=== PATIENT | male | born 1950 | race Caucasian/White ===

== ENCOUNTER 2016-03-03 16:10 | Outpatient (CLI) | payer BC | END 2016-03-03 16:11 | disposition home or self-care (01) | DX: R05 Cough (principal) ==

== ENCOUNTER 2016-10-29 13:06 | Outpatient (CLI) | payer MEDICARE, BC ==
--- NOTE | 2016-10-29 17:56 | MRI Report ---
EXAM: MRI LUMBAR SPINE WITHOUT CONTRAST EXAM DATE: 10/29/2016 01:51 PM. CLINICAL HISTORY: Right buttock pain radiates to leg. Previous liver transplant. COMPARISON: X-ray 09/17/2016. TECHNIQUE: Multiplanar, multisequence T1-weighted and fluid-sensitive sequences of the lumbar spine f rom T12 to S1 without contrast. Other: None. FINDINGS: Spinal Cord: The conus terminates at T12. No signal abnormality in the visualized spinal cord. Alignment: 0.3 cm L4 anterolisthesis. No significant scoliotic curvature. Bone Marrow: Five [id number] lumbar vertebral bodies are assumed. Mild endplate edema at L5-S1, degenerative. No fracture or suspicious bony lesion. Disk Levels/Facets: T12-L1: Unremarkable. L1-L2: Mild disk bulge and T2 hypointensity of the disk. Mild bilateral facet arthropathy. Moderate b ilateral foraminal stenoses. L2-L3: Mild disk bulge and moderate bilateral facet arthropathy. Moderate bilateral foraminal stenose s. L3-L4: Mild bulge. Moderate bilateral facet arthropathy. No central stenosis. Mjxj-es-jvcwywkr bilate ral foraminal stenoses. L4-L5: Moderate disk bulge. Severe bilateral facet arthropathy with small facet joint effusion on the left. Ligament flavum thickening. Mild central stenosis. Moderate bilateral foraminal stenoses. L5-S1: Moderate disk narrowing with mild bulge. Moderate bilateral facet arthropathy. Moderate right foraminal stenosis. Musculature: Normal. No edema or fatty atrophy. Other: The visualized pelvic cavity is unremarkable. IMPRESSION: 1. Mild central stenosis L4-L5. 2. Multilevel bilateral moderate foraminal stenoses described above. 3. Moderate multilevel degenerative disk disease and facet arthropathy. Disk narrowing is most signif icant at L5-S1. Comment: The following findings are so common in adults without low back pain that while we report th eir presence, they must be interpreted with caution and in the context of the clinical situation. (Re denise Deluna et al, Spine 2001) Prevalence of findings in patients without low back pain: Disk degeneration (any evidence): 92% Disk desiccation/T2 signal loss: 83% Disk height loss: 56% Disk bulge: 64% Disk protrusion: 32% Annular tear/high intensity zone: 38% [facility] Referring Provider Line: [phone] SITE ID: [id number]
== END 2016-10-29 13:07 | disposition home or self-care (01) ==
LOC: DI 13:06
PROVIDERS: ATTEND Family Medicine
DX: M51.16 Intervertebral disc disorders with radiculopathy, lumbar region (principal)
CPT/HCPCS: 72148

== ENCOUNTER 2017-03-14 04:51 | Emergency (ER) | payer MEDICARE, BC ==
--- NOTE | 2017-03-14 05:03 | ED Physician Documentation ---
PD HPI NECK PAIN - Stated complaint Stated Complaint: SYNCOPE,NECK PAIN - Chief complaint Chief Complaint: Back Pain - History obtained from History obtained from: Patient - History of Present Illness Timing - onset: How many days ago (3) Timing - duration: Days (3) Timing - details: Abrupt onset Pain level now: 8 Location: Mid Quality: Pain Associated symptoms: No: Fever, Weakness, Numbness Improves with: Rest Worsened by: Movement Recently seen: Not recently seen - Additional information Additional information: syncopal episode 3 days ago; he was walking in his house, felt lightheaded and passed out, awoke on floor with helping him up. He says he has had similar episodes and has had extensive w/u at [facility] without diagnostic result. His chief complaint today is neck pain that started the evening he had the syncopal event but that has steadily progressed. He was unable to sleep tonight due to the pain , and had inadequate relief with codeine. Review of Systems Cardiac: reports: Reviewed and negative Respiratory: reports: Reviewed and negative GI: reports: Reviewed and negative : denies: Unable to Void, Incontinent Musculoskeletal: reports: Neck pain. denies: Back pain Neurologic: reports: Syncope. denies: Generalized weakness, Focal weakness, Numbness, Headache, Head injury PD PAST MEDICAL HISTORY - Past Medical History Past Medical History: Yes Cardiovascular: Hypertension Respiratory: None Endocrine/Autoimmune: None GI: None : Benign prostate hypertrophy HEENT: None Psych: None Musculoskeletal: None Derm: Other - Past Surgical History Past Surgical History: Yes - Present Medications Home Medications: Ambulatory Orders Medication Instructions Recorded Confirmed Allopurinol 200 mg ORAL DAILY 03/29/14 03/29/14 Calcium Carbonate [Caltrate 600] 600 mg ORAL DAILY 03/29/14 03/29/14 Carvedilol 75 mg ORAL DAILY 03/29/14 03/29/14 Colchicine [Colcrys] 0.6 mg ORAL DAILY 03/29/14 03/29/14 Irbesartan 75 mg ORAL DAILY 03/29/14 03/29/14 Mycophenolate Sodium [Mycophenolic 360 mg ORAL BID 03/29/14 03/29/14 Acid] Tacrolimus [Prograf] 1.5 mg ORAL BID 03/29/14 03/29/14 Cyclobenzaprine [Flexeril] 10 mg PO TID PRN #20 tablet 03/14/17 oxyCODONE [Roxicodone] 5 - 10 mg PO Q6H PRN #20 tablet 03/14/17 - Allergies Allergies/Adverse Reactions: Allergies Allergy/AdvReac Type Severity Reaction Status Date / Time No Known Drug Allergies Allergy Verified 03/14/17 04:59 - Social History Does the pt smoke?: No Smoking Status: Never smoker Does the pt drink ETOH?: No Does the pt have substance abuse?: No - Immunizations Immunizations are current?: Yes - POLST Patient has POLST: No PD ED PE NORMAL - Vitals Vital signs reviewed: Yes - General General: Alert and oriented X 3, No acute distress (NAD at rest, but keeps his head in neutral ("looking straight ahead") position, and appears uncomfortable with attempts at turning head to either side. ), Well developed/nourished - Neck Neck: Supple, no meningeal sign, No bony TTP - Cardiac Cardiac: RRR, No murmur - Respiratory Respiratory: No respiratory distress, Clear bilaterally - Abdomen Abdomen: Soft, Non tender - Derm Derm: Normal color, Warm and dry - Neuro Neuro: Alert and oriented X 3 Eye Opening: Spontaneous Motor: Obeys Commands Verbal: Oriented GCS Score: 15 Results - Vitals Vitals: Vital Signs - 24 hr 03/14/17 03/14/17 04:57 06:26 Temperature 36.5 C Heart Rate 99 74 Respiratory 18 18 Rate Blood Pressure 153/82 H 132/79 H O2 Saturation 100 96 Oxygen O2 Source Room air - EKG (time done) No standard instances Rate: Rate (enter#) (83) Rhythm: NSR [place]: Normal Intervals: Normal [place] QRS: Normal Ischemia: Normal ST segments - Labs Labs: Laboratory Tests 03/14/17 03/14/17 03/14/17 05:53 05:53 05:53 WBC 11.4 H RBC 4.75 Hgb 13.1 L Hct 40.1 L MCV 84.4 MCH 27.5 MCHC 32.6 RDW 13.8 Plt Count 148 MPV 8.3 Neut # 9.9 H Lymph # 0.7 L [place] # 0.8 Eos # 0.0 Baso # 0.0 Absolute Nucleated RBC 0.00 Nucleated RBC % 0.0 Sodium 135 Potassium 4.2 Chloride 100 L Carbon Dioxide 23 Anion Gap 12.0 BUN 36 H Creatinine 2.0 H Estimated GFR (MDRD) 34 L Glucose 172 H Calcium 9.4 Total Bilirubin 0.6 AST 17 ALT 17 Alkaline Phosphatase 54 Troponin I < 0.04 Total Protein 7.1 Albumin 4.6 Globulin 2.5 Albumin/Globulin Ratio 1.8 Lipase 26 - Rads (name of study) chest xray Radiology: Prelim report reviewed, See rad report CT cervical spine Radiology: Prelim report reviewed, See rad report PD MEDICAL DECISION MAKING - ED course Complexity details: reviewed old records, reviewed results, re-evaluated patient , considered differential, d/w patient ED course: On reevaluation, patient appears more comfortable and reports adequate symptom relief with the oxycodone and flexeril Departure - Departure Disposition: 01 Home, Self Care Clinical Impression: Injury of neck, Syncope Condition: Good Instructions: ED Soft Collar, ED Sprain Strain Neck, ED Fainting Unkn Cause Follow-Up: Noah Light MD [Primary Care Provider] - Prescriptions: Cyclobenzaprine [Flexeril] 10 mg PO TID PRN #20 tablet PRN Reason: Spasms oxyCODONE [Roxicodone] 5 - 10 mg PO Q6H PRN #20 tablet PRN Reason: Pain
[2017-03-14] MEDS ORDERED: CYCLOBENZAPRINE 10 MG TABLET PO STA (05:29)
[2017-03-14] MEDS ORDERED: oxyCODONE 5 MG TABLET PO STA (05:29)
[2017-03-14 06:03] LABS: BASOPHILS % (AUTO) 0.2 %; EOSINOPHILS % (AUTO) 0.4 %; HGB - HEMOGLOBIN 13.1 g/dL (14.0-18.0); LYMPHOCYTES # (AUTO) 0.7 10^3/uL (1.5-3.5); MEAN CORPUSCULAR HEMOGLOBIN 27.5 pg (27.0-31.0); MEAN CORPUSCULAR HGB CONC 32.6 g/dL (32.0-36.0); MEAN CORPUSCULAR VOLUME 84.4 fL (80.0-94.0); MEAN PLATELET VOLUME 8.3 fL (7.4-11.4); MONOCYTES # (AUTO) 0.8 10^3/uL (0.0-1.0); MONOCYTES % (AUTO) 6.9 %; NEUTROPHILS # (AUTO) 9.9 10^3/uL (1.5-6.6); NEUTROPHILS % (AUTO) 86.5 %; PLT - PLATELET COUNT 148 10^3/uL (130-450); RED BLOOD COUNT 4.75 10^6/uL (4.70-6.10); RED CELL DISTRIBUTION WIDTH 13.8 % (12.0-15.0); WHITE BLOOD COUNT 11.4 x10^3/uL (4.8-10.8)
[2017-03-14 06:13] LABS: ALBUMIN 4.6 g/dL (3.2-5.5); ALBUMIN/GLOBULIN RATIO 1.8 (1.0-2.2); BILIRUBIN,TOTAL 0.6 mg/dL (0.2-1.0); CALCIUM 9.4 mg/dL (8.5-10.3); TOTAL PROTEIN 7.1 g/dL (6.7-8.2)
--- NOTE | 2017-03-14 06:17 | XRAY Report ---
EXAM: CHEST RADIOGRAPHY EXAM DATE: 03/14/2017 06:03 AM. CLINICAL HISTORY: Syncope. COMPARISON: 07/15/2016. TECHNIQUE: 2 views. FINDINGS: Lungs/Pleura: No focal opacities evident. No pleural effusion. No pneumothorax. Normal volumes. Mediastinum: Heart and mediastinal contours are unremarkable. Other: Stable left hemidiaphragm elevation. IMPRESSION: No acute process seen in the chest. [facility] Referring Provider Line: [phone] SITE ID: [id number]
--- NOTE | 2017-03-14 06:28 | CT Report ---
EXAM: CT CERVICAL SPINE WITHOUT CONTRAST DATE: 03/14/2017 05:45 AM. HISTORY: Fall, neck pain. COMPARISONS: Cervical spine MRI 12/27/2015. TECHNIQUE: Thin-section axial images were acquired of the cervical spine without contrast. Post-proce ssing: Coronal and sagittal reformats. Other: None. In accordance with CT protocol optimization, one or more of the following dose reduction techniques w ere utilized for this exam: automated exposure control, adjustment of mA and/or KV based on patient s ize, or use of iterative reconstructive technique. FINDINGS: Alignment: No scoliosis or spondylolisthesis. Bones: There is slight loss of the T1 vertebral body with deformity of the superior endplate as on p rior MRI. No evidence of acute fracture. Interspace Levels/Facets: C1-C2: Unremarkable. C2-C3: Unremarkable. C3-C4: Unremarkable. C4-C5: There is a disk bulge with mild central canal narrowing. C5-C6: There is disk height loss. There are endplate degenerative changes. There is a disk bulge with mild central canal narrowing. There is moderate bilateral neural foraminal narrowing. C6-C7: There is disk height loss and endplate degenerative changes. There is a disk osteophyte comple x with moderate central canal narrowing. There is moderate bilateral neural foraminal narrowing. C7-T1: Unremarkable. Musculature: Normal. No fatty atrophy. Other: The paravertebral and prevertebral soft tissues are unremarkable. The lung apices are clear. IMPRESSION: No evidence of acute cervical spine fracture. [facility] Referring Provider Line: [phone] SITE ID: [id number]
--- NOTE | 2017-03-14 06:28 | CT Preliminary Report ---
Exam: CT CERVICAL SPINE W/O IMPRESSION: No evidence of acute cervical spine fracture. [facility] SITE ID: [id number]
[2017-03-14 08:19] VITALS: BP 136/72
== END 2017-03-14 07:15 | disposition home or self-care (01) ==
LOC: ED 04:51
DX: S19.9XXA Unspecified injury of neck, initial encounter (principal); W19.XXXA Unspecified fall, initial encounter; R55 Syncope and collapse; I10 Essential (primary) hypertension
CPT/HCPCS: 36415; 71046; 72125; 80053; 83690; 84484; 85025; 93005; 99283; 99284; A9270

== ENCOUNTER 2017-09-22 10:06 | Emergency (ER) | payer MEDICARE, BC ==
[2017-09-22] MEDS ORDERED: SODIUM CHLORIDE 0.9% 1,000 ML IV ONE ×2 (10:26→11:55)
[2017-09-22] MEDS ORDERED: METOPROLOL 5 MG/5 ML VIAL IVP STA (10:47)
--- NOTE | 2017-09-22 10:51 | ED Physician Documentation ---
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 HTN and gout and renal insuff stable on meds - no new changes at baseline health recently - no fever cough NVD was taking out garbage and felt near syncope hx same about 3 times a year has had an extensive wup for the same at [facility] but no cause ever found states sx usually self resolve so PMD told him if sx occurred again to go to ED right away while symptomatic he arrives here in fib RVR with no hx same Review of Systems Constitutional: denies: Fever, Chills Cardiac: denies: Chest pain / pressure, Palpitations Respiratory: denies: Dyspnea, Cough GI: denies: Abdominal Pain, Nausea, Vomiting Neurologic: reports: Generalized weakness. denies: Focal weakness, Numbness Endocrine: denies: Easy bruising / bleeding Immunocompromised: reports: Immunocompromised (post transplant) PD PAST MEDICAL HISTORY - Past Medical History Cardiovascular: Hypertension Respiratory: None Endocrine/Autoimmune: None GI: None : Benign prostate hypertrophy HEENT: None Psych: None Musculoskeletal: None Derm: Other - Past Surgical History Past Surgical History: Yes - Present Medications Home Medications: Ambulatory Orders Medication Instructions Recorded Confirmed Allopurinol 200 mg ORAL DAILY 03/29/14 09/22/17 Calcium Carbonate [Caltrate 600] 600 mg ORAL DAILY 03/29/14 09/22/17 Carvedilol 75 mg ORAL DAILY 03/29/14 09/22/17 Colchicine [Colcrys] 0.6 mg ORAL PRN PRN 03/29/14 03/29/14 Irbesartan 75 mg ORAL DAILY 03/29/14 09/22/17 Mycophenolate Sodium [Mycophenolic 360 mg ORAL BID 03/29/14 09/22/17 Acid] Tacrolimus [Prograf] 1.5 mg ORAL BID 03/29/14 09/22/17 - Allergies Allergies/Adverse Reactions: Allergies Allergy/AdvReac Type Severity Reaction Status Date / Time No Known Drug Allergies Allergy Verified 03/14/17 04:59 - Social History Does the pt smoke?: No Smoking Status: Never smoker Does the pt drink ETOH?: No Does the pt have substance abuse?: No - Immunizations Immunizations are current?: Yes - POLST Patient has POLST: No PD ED PE NORMAL - Vitals Vital signs reviewed: Yes - General General: Alert and oriented X 3 - HEENT HEENT: PERRL - Neck Neck: Supple, no meningeal sign - Cardiac Cardiac: No: RRR (tachy) - Respiratory Respiratory: No respiratory distress, Clear bilaterally - Abdomen Abdomen: Non tender - Neuro Neuro: Alert and oriented X 3, 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, No motor deficit, Normal speech Results - Vitals Vitals: Vital Signs - 24 hr 09/22/17 09/22/17 09/22/17 10:18 11:01 11:06 Temperature 36 C L Heart Rate 62 124 H 136 H Respiratory 16 20 13 Rate Blood Pressure 107/89 H 150/127 H 77/62 L O2 Saturation 99 97 98 09/22/17 09/22/17 09/22/17 11:10 11:12 11:24 Temperature Heart Rate 122 H 135 H 120 H Respiratory Rate Blood Pressure 85/67 L 96/52 L 85/55 L O2 Saturation 98 09/22/17 09/22/17 09/22/17 12:20 12:27 12:41 Temperature Heart Rate 120 H 115 H 120 H Respiratory 16 17 Rate Blood Pressure 79/54 L 93/68 103/64 O2 Saturation 100 100 09/22/17 09/22/17 09/22/17 12:50 13:03 13:06 Temperature Heart Rate 113 H 67 72 Respiratory 18 12 16 Rate Blood Pressure 98/66 96/68 O2 Saturation 100 100 09/22/17 09/22/17 09/22/17 13:27 13:54 14:23 Temperature Heart Rate 64 62 95 Respiratory 15 16 16 Rate Blood Pressure 98/72 103/81 H 104/74 O2 Saturation 99 100 99 09/22/17 14:53 Temperature Heart Rate 64 Respiratory 64 H Rate Blood Pressure 105/77 O2 Saturation 98 Oxygen O2 Source Room air - EKG (time done) 1026 Rate: Rate (enter#) (157) Rhythm: Atrial fibrillation Ischemia: Non specific changes 1320 Rate: Rate (enter#) (64) Rhythm: NSR Ischemia: Non specific changes (flat T inf, TWI III only) - Labs Labs: Laboratory Tests 09/22/17 09/22/17 09/22/17 10:45 10:45 10:45 WBC 6.7 RBC 4.77 Hgb 13.3 L Hct 39.6 L MCV 83.0 MCH 28.0 MCHC 33.7 RDW 14.1 Plt Count 132 MPV 8.6 Neut # (Auto) 4.8 Lymph # (Auto) 0.9 L [place] # (Auto) 0.7 Eos # (Auto) 0.2 Baso # (Auto) 0.0 Absolute Nucleated RBC 0.00 Nucleated RBC % 0.1 Sodium 137 Potassium 4.4 Chloride 103 Carbon Dioxide 25 Anion Gap 9.0 BUN 44 H Creatinine 2.4 H Estimated GFR (MDRD) 27 L Glucose 127 H Lactic Acid Calcium 9.4 Total Bilirubin 1.1 H AST 22 ALT 16 Alkaline Phosphatase 54 Troponin I < 0.04 Total Protein 6.8 Albumin 4.3 Globulin 2.5 Albumin/Globulin Ratio 1.7 Lipase 29 Urine Color Urine Clarity Urine pH Ur Specific [place] Urine Protein Urine Glucose (UA) Urine Ketones Urine Occult Blood Urine Nitrite Urine Bilirubin Urine Urobilinogen Ur Leukocyte Esterase Ur Microscopic Review Urine Culture Comments 09/22/17 09/22/17 10:45 13:30 WBC RBC Hgb Hct MCV MCH MCHC RDW Plt Count MPV Neut # (Auto) Lymph # (Auto) [place] # (Auto) Eos # (Auto) Baso # (Auto) Absolute Nucleated RBC Nucleated RBC % Sodium Potassium Chloride Carbon Dioxide Anion Gap BUN Creatinine Estimated GFR (MDRD) Glucose Lactic Acid 1.2 Calcium Total Bilirubin AST ALT Alkaline Phosphatase Troponin I Total Protein Albumin Globulin Albumin/Globulin Ratio Lipase Urine Color YELLOW Urine Clarity CLEAR Urine pH 6.0 Ur Specific [place] 1.015 Urine Protein TRACE Urine Glucose (UA) NEGATIVE Urine Ketones NEGATIVE Urine Occult Blood TRACE-INTA Urine Nitrite NEGATIVE Urine Bilirubin NEGATIVE Urine Urobilinogen 0.2 (NORMAL) Ur Leukocyte Esterase NEGATIVE Ur Microscopic Review NOT INDICATED Urine Culture Comments NOT INDICATED - Rads (name of study) CCXR Radiology: See rad report (no acute) Procedures - Procedural sedation Sedation prep: Informed consent, Time out completed, Last meal (approx 730 AM), PE performed, AHA 2 - mild disease, IV O2 monitor, ET CO2 monitor, RT present Sedation medications: morphine, zofran, propofol, given by MD Patient status during sedation: Responds to tactile. No: Complications Sedation recovery: Recovered uneventfully, Back to baseline - Cardioversion 1 Time of attempt: 12:55 Indication: Clinically unstable Risks, benefits, alternatives explained to: Pt Prep: IV, O2, monitor technician, Pulse ox, Airway equip Meds: Morphine, Propofol CS via: Pads, Anterolateral Sync: Biphasic, 100j Post cardioversion rhythm: NSR Complications: Other (none) PD MEDICAL DECISION MAKING - ED course ED course: MSE performed near syncope and new a fib RVR gave a single dose of lopressor for rate control and pt became hypotensive so cardioverted under propfol sedation succ with 100J sync X 1, pt tolerated sedation and cardioversion well afib not documented before but pt describes same sx many times before so likely recurrent now cardioverted lytes nl neg trop doubt PE as it is recurrent and he is not soa and has no leg swelling - and his GFR is too low pt now feels much better and is ambulating s syncope will dc after d/w PMD re anticoag etc - spoke to Dr Light who will see pt tomorrow will give copies of EKGs renal insuff not new now pt is stable and safe for dc with next day PMD fup - Sepsis Event Vital Signs: Vital Signs - 24 hr 09/22/17 09/22/17 09/22/17 10:18 11:01 11:06 Temperature 36 C L Heart Rate 62 124 H 136 H Respiratory 16 20 13 Rate Blood Pressure 107/89 H 150/127 H 77/62 L O2 Saturation 99 97 98 09/22/17 09/22/17 09/22/17 11:10 11:12 11:24 Temperature Heart Rate 122 H 135 H 120 H Respiratory Rate Blood Pressure 85/67 L 96/52 L 85/55 L O2 Saturation 98 09/22/17 09/22/17 09/22/17 12:20 12:27 12:41 Temperature Heart Rate 120 H 115 H 120 H Respiratory 16 17 Rate Blood Pressure 79/54 L 93/68 103/64 O2 Saturation 100 100 09/22/17 09/22/17 09/22/17 12:50 13:03 13:06 Temperature Heart Rate 113 H 67 72 Respiratory 18 12 16 Rate Blood Pressure 98/66 96/68 O2 Saturation 100 100 09/22/17 09/22/17 09/22/17 13:27 13:54 14:23 Temperature Heart Rate 64 62 95 Respiratory 15 16 16 Rate Blood Pressure 98/72 103/81 H 104/74 O2 Saturation 99 100 99 07/26/18 14:53 Temperature Heart Rate 64 Respiratory 64 H Rate Blood Pressure 105/77 O2 Saturation 98 Oxygen O2 Source Room air Departure - Departure Disposition: 01 Home, Self Care Clinical Impression: Near syncope Atrial fibrillation Qualifiers: Atrial fibrillation type: paroxysmal Qualified Code(s): I48.0 - Paroxysmal atrial fibrillation Condition: Good Instructions: Atrial Fibrillation Dc Follow-Up: Noah Light MD [Primary Care Provider] - (tomorrow for a recheck ) Comments: Please rest and take it easy today No driving today after receiving the sedating medications Drink plenty of fluids Follow up with Dr Light tomorrow Discharge Date/Time: 09/22/17 14:55
[2017-09-22 11:00] LABS: BASOPHILS % (AUTO) 0.5 %; EOSINOPHILS # (AUTO) 0.2 10^3/uL (0.0-0.7); EOSINOPHILS % (AUTO) 2.8 %; HGB - HEMOGLOBIN 13.3 g/dL (14.0-18.0); LYMPHOCYTES # (AUTO) 0.9 10^3/uL (1.5-3.5); LYMPHOCYTES % (AUTO) 13.9 %; MEAN CORPUSCULAR HGB CONC 33.7 g/dL (32.0-36.0); MEAN PLATELET VOLUME 8.6 fL (7.4-11.4); MONOCYTES # (AUTO) 0.7 10^3/uL (0.0-1.0); MONOCYTES % (AUTO) 10.1 %; NEUTROPHILS # (AUTO) 4.8 10^3/uL (1.5-6.6); NEUTROPHILS % (AUTO) 72.7 %; PLT - PLATELET COUNT 132 10^3/uL (130-450); RED BLOOD COUNT 4.77 10^6/uL (4.70-6.10); RED CELL DISTRIBUTION WIDTH 14.1 % (12.0-15.0); WHITE BLOOD COUNT 6.7 x10^3/uL (4.8-10.8)
[2017-09-22 11:14] LABS: ALBUMIN 4.3 g/dL (3.2-5.5); ALBUMIN/GLOBULIN RATIO 1.7 (1.0-2.2); BILIRUBIN,TOTAL 1.1 mg/dL (0.2-1.0); CALCIUM 9.4 mg/dL (8.5-10.3); CREATININE 2.4 mg/dL (0.6-1.2); TOTAL PROTEIN 6.8 g/dL (6.7-8.2)
--- NOTE | 2017-09-22 11:20 | XRAY Report ---
Procedure Date: 09/22/2017 Accession Number: [id number] / [id number] Procedure: XR - Chest 1 View X-Ray CPT Code: 04112 FULL RESULT: EXAM: CHEST RADIOGRAPHY EXAM DATE: 09/22/2017 10:58 AM. CLINICAL HISTORY: Chest pain and hypertension. COMPARISON: CHEST 2 VIEW 03/14/2017. TECHNIQUE: 1 view. 2 images are provided. FINDINGS: Lungs/Pleura: No focal opacities evident. No pleural effusion. No pneumothorax. Elevation of the left hemidiaphragm as before. Mediastinum: The cardiac silhouette is normal in size. Mildly tortuous thoracic aorta. Other: None. IMPRESSION: No radiographically apparent acute abnormality in the chest. No significant change from prior. [facility]
[2017-09-22] MEDS ORDERED: PROPOFOL 200 MG/20 ML VIAL IVP ONE (13:01)
[2017-09-22] MEDS ORDERED: MORPHINE 2 MG/ML SYRINGE ONE (13:06)
[2017-09-22] MEDS ORDERED: ONDANSETRON 4 MG/2 ML VIAL ONE (13:06)
[2017-09-22] MEDS ORDERED: MORPHINE 2 MG/ML SYRINGE IVP STA (13:08)
[2017-09-22] MEDS ORDERED: ONDANSETRON 4 MG/2 ML VIAL IVP STA (13:08)
[2017-09-22] MEDS ORDERED: PROPOFOL 200 MG/20 ML VIAL IVP STA (13:08)
[2017-09-22 13:39] LABS: BILIRUBIN,URINE NEGATIVE (NEGATIVE); GLUCOSE, URINE (UA) NEGATIVE (NEGATIVE); KETONES,URINE (UA) NEGATIVE (NEGATIVE); LEUKOCYTE ESTERASE, URINE NEGATIVE (NEGATIVE); NITRITE,URINE NEGATIVE (NEGATIVE); OCCULT BLOOD,URINE TRACE-INTA (NEGATIVE); PROTEIN,URINE TRACE mg/dL (NEGATIVE); UROBILINOGEN,URINE 0.2 (NORMAL) E.U./dL (NORMAL)
[2017-09-22 13:41] LABS: CLARITY,URINE CLEAR (CLEAR)
[2017-09-22 14:54] VITALS: BP 105/77
== END 2017-09-22 14:55 | disposition home or self-care (01) ==
LOC: ED 10:06
DX: R55 Syncope and collapse (principal); I48.0 Paroxysmal atrial fibrillation; I10 Essential (primary) hypertension; Z94.4 Liver transplant status
CPT/HCPCS: 36415; 71045; 80053; 81003; 83605; 83690; 84484; 85025; 87040; 93005; 94770; 99152; 99284; J2270; 81001; 87086; 92960

== ENCOUNTER 2017-09-30 08:08 | Outpatient (CLI) | payer MEDICARE, BC | END 2017-09-30 08:09 | disposition home or self-care (01) | LOC: DI 08:08 | PROVIDERS: ATTEND Family Medicine | DX: I48.91 Unspecified atrial fibrillation (principal) | CPT/HCPCS: 93306 ==

== ENCOUNTER 2019-05-04 10:57 | Outpatient (CLI) | payer MEDICARE, BC | END 2019-05-04 23:59 | disposition home or self-care (01) | LOC: LAB.WCP 10:57 | PROVIDERS: ATTEND Family Medicine | DX: Z12.5 Encounter for screening for malignant neoplasm of prostate (principal) | CPT/HCPCS: 36415; G0103; 84153 ==

== ENCOUNTER 2020-01-08 16:35 | Outpatient (CLI) | payer MEDICARE, BC | END 2020-01-08 16:36 | disposition home or self-care (01) | LOC: COV 16:35 | PROVIDERS: ATTEND Family Medicine | DX: R53.83 Other fatigue (principal); R68.83 Chills (without fever); R19.7 Diarrhea, unspecified; R11.2 Nausea with vomiting, unspecified; Z20.828 Contact with and (suspected) exposure to other viral communicable diseases ==

== ENCOUNTER 2020-06-30 12:07 | Outpatient (CLI) | payer MEDICARE, BC ==
--- NOTE | 2020-06-30 13:21 | XRAY Report ---
PROCEDURE: ThoracoLumbar 2 View INDICATIONS: DEGENERATIVE JOINT DISEASE, LUMBAR SPINE TECHNIQUE: 2 views acquired of the thoracolumbar spine. COMPARISON: 10/29/2016 MR LS-spine FINDINGS: Bones: No acute fractures or dislocations but there is degenerative disc disease that is mild at the superior third of the LS-spine, moderate at the middle third and near severe at the inferior third. This is most pronounced at L4-5 and L5-S1 where both prominent anterior osteophyte formation is seen and also facet osteoarthritis is present, most pronounced at L5-S1. Slight anterolisthesis grade 1 of L4 on L5 is present. This is apparently due to ligamentous laxity.. Visualized inferior ribs appear intact. No suspicious bony lesions. Soft tissues: No suspicious soft tissue calcifications. IMPRESSION: Progressively greater degenerative disc disease and facet osteoarthritis as the lumbosacral junction is approached, most pronounced at L5-S1 and with facet osteoarthritis present at L4-L5 to the degree that anterolisthesis grade 1 is associated. No recent trauma found. Reviewed by: Juan Rich MD on 06/30/2020 1:20 PM PDT Approved by: Juan Rich MD on 06/30/2020 1:20 PM PDT Station ID: [id number]
== END 2020-06-30 12:08 | disposition home or self-care (01) ==
LOC: DI 12:07
PROVIDERS: ATTEND Internal Medicine
DX: M47.816 Spondylosis without myelopathy or radiculopathy, lumbar region (principal); M51.36 Other intervertebral disc degeneration, lumbar region; M51.37 Other intervertebral disc degeneration, lumbosacral region; M43.16 Spondylolisthesis, lumbar region

== ENCOUNTER 2021-05-15 10:41 | Outpatient (CLI) | payer MEDICARE, BC ==
[2021-05-15 18:40] LABS: BASOPHILS # (AUTO) 0.1 10^3/uL (0.0-0.1); BASOPHILS % (AUTO) 0.6 %; EOSINOPHILS # (AUTO) 0.5 10^3/uL (0.0-0.7); EOSINOPHILS % (AUTO) 5.7 %; HGB - HEMOGLOBIN 13.8 g/dL (14.0-18.0); LYMPHOCYTES % (AUTO) 12.7 %; MEAN CORPUSCULAR HEMOGLOBIN 28.5 pg (27.0-31.0); MEAN CORPUSCULAR HGB CONC 32.9 g/dL (32.0-36.0); MEAN CORPUSCULAR VOLUME 86.8 fL (80.0-94.0); MEAN PLATELET VOLUME 11.2 fL (7.4-11.4); MONOCYTES # (AUTO) 0.8 10^3/uL (0.0-1.0); MONOCYTES % (AUTO) 10.6 %; NEUTROPHILS # (AUTO) 5.6 10^3/uL (1.5-6.6); PLT - PLATELET COUNT 162 10^3/uL (130-450); RED BLOOD COUNT 4.84 10^6/uL (4.70-6.10); RED CELL DISTRIBUTION WIDTH 12.8 % (12.0-15.0)
[2021-05-15 19:04] LABS: ALBUMIN 4.3 g/dL (3.2-5.5); ALBUMIN/GLOBULIN RATIO 1.5 (1.0-2.2); BILIRUBIN,TOTAL 0.9 mg/dL (0.2-1.0); CALCIUM 9.7 mg/dL (8.5-10.3); CREATININE 1.7 mg/dL (0.6-1.2); POTASSIUM 4.7 mmol/L (3.5-5.0); TOTAL PROTEIN 7.1 g/dL (6.7-8.2); URIC ACID 7.2 mg/dL (2.6-7.2)
== END 2021-05-15 10:42 | disposition home or self-care (01) ==
LOC: LAB.N 10:41
PROVIDERS: ATTEND Nurse Practitioner
DX: E79.0 Hyperuricemia without signs of inflammatory arthritis and tophaceous disease (principal)
CPT/HCPCS: 36415; 80053; 84550; 85025

== ENCOUNTER 2021-12-31 08:17 | Outpatient (CLI) | payer MEDICARE, BC ==
[2021-12-31 08:33] LABS: BASOPHILS % (AUTO) 0.6 %; EOSINOPHILS # (AUTO) 0.5 10^3/uL (0.0-0.7); EOSINOPHILS % (AUTO) 8.7 %; HCT - HEMATOCRIT 41.7 % (42.0-52.0); HGB - HEMOGLOBIN 13.5 g/dL (14.0-18.0); LYMPHOCYTES # (AUTO) 0.9 10^3/uL (1.5-3.5); LYMPHOCYTES % (AUTO) 17.5 %; MEAN CORPUSCULAR HGB CONC 32.4 g/dL (32.0-36.0); MEAN CORPUSCULAR VOLUME 86.5 fL (80.0-94.0); MEAN PLATELET VOLUME 9.4 fL (7.4-11.4); MONOCYTES # (AUTO) 0.4 10^3/uL (0.0-1.0); MONOCYTES % (AUTO) 7.3 %; NEUTROPHILS # (AUTO) 3.4 10^3/uL (1.5-6.6); NEUTROPHILS % (AUTO) 65.7 %; PLT - PLATELET COUNT 103 10^3/uL (130-450); RED BLOOD COUNT 4.82 10^6/uL (4.70-6.10); RED CELL DISTRIBUTION WIDTH 13.2 % (12.0-15.0); WHITE BLOOD COUNT 5.2 x10^3/uL (4.8-10.8)
[2021-12-31 08:56] LABS: ALBUMIN 4.6 g/dL (3.2-5.5); ALBUMIN/GLOBULIN RATIO 2.4 (1.0-2.2); ALKALINE PHOSPHATASE 63 IU/L (42-121); ALT ALANINE AMINOTRANSFERASE 25 IU/L (10-60); AST ASPARTATE AMINOTRANSFERASE 22 IU/L (10-42); BUN - BLOOD UREA NITROGEN 31 mg/dL (6-20); CALCIUM 9.9 mg/dL (8.5-10.3); CARBON DIOXIDE - CO2 27 mmol/L (21-32); CHLORIDE 103 mmol/L (101-111); CHOL/HDL RATIO 4.8 (<5.0); CHOLESTEROL 164 mg/dL; GFR - MDRD 33 (>89); GLUCOSE 112 mg/dL (70-100); HDL CHOLESTEROL 34 mg/dL; LDL CHOLESTEROL,CALCULATED 110 mg/dL; LDL/HDL RATIO 3.2 (<3.6); POTASSIUM 4.1 mmol/L (3.5-5.0); SODIUM 138 mmol/L (135-145); TOTAL PROTEIN 6.5 g/dL (6.7-8.2); TRIGLYCERIDES 101 mg/dL; URIC ACID 6.5 mg/dL (2.6-7.2); VLDL CHOLESTEROL 20 mg/dL
[2021-12-31 09:06] LABS: THYROID STIMULATING HORMONE 4.56 uIU/mL (0.34-5.60)
== END 2021-12-31 08:18 | disposition home or self-care (01) ==
LOC: LAB 08:17
PROVIDERS: ATTEND Internal Medicine
DX: I48.0 Paroxysmal atrial fibrillation (principal); N40.1 Benign prostatic hyperplasia with lower urinary tract symptoms; E79.0 Hyperuricemia without signs of inflammatory arthritis and tophaceous disease; Z94.4 Liver transplant status; Z13.220 Encounter for screening for lipoid disorders
CPT/HCPCS: 36415; 80053; 80061; 83721; 84153; 84443; 84550; 85025

== ENCOUNTER 2022-05-20 08:14 | Outpatient (CLI) | payer MEDICARE, BC ==
--- NOTE | 2022-05-20 11:53 | CT Report ---
PROCEDURE: SINUS SCREENING WO INDICATIONS: NOSE TENDER, CHRONIC MAXILLARY SINUSITIS TECHNIQUE: Noncontrast 3.0 mm axial images acquired from the frontal sinuses to the mid-sella, with coronal and sagittal reformats. For radiation dose reduction, the following was used: automated exposure control , adjustment of mA and/or kV according to patient size. COMPARISON: None. FINDINGS: Image quality: Excellent. Maxillary Sinuses: Mild to moderate mucosal thickening is seen within the inferior right maxillary si nus. Mild mucosal thickening is seen within the inferior left maxillary sinus. The medial mishra of th e maxillary sinuses are mildly demineralized. Ethmoid Air Cells: No bony remodeling or destruction. Minimal mucosal thickening is seen involving t he anterior ethmoid air cells. Sphenoid Sinuses: No bony remodeling or destruction. There is a mucous retention cyst seen involving the posterior right sphenoid sinus. Frontal Sinuses: No bony remodeling or destruction. Mild mucosal thickening is seen involving the in ferior medial frontal sinuses, left worse than right. Ostiomeatal Complexes: Ostiomeatal complexes are patent, yet they are constitutionally narrowed, wit h bilateral Elaine cells. Miscellaneous: Visualized intra-orbital contents are normal. No augie bullosa. No significant n marybeth septal deviation. Apparent cerumen can be seen within both external auditory canals. Apparent remote nasal bone fractures can be seen. IMPRESSION: Paranasal sinus disease is seen, which is worst involving the maxillary sinuses, right worse than lef t. Areas of bony demineralization are seen, which are consistent with chronic sinusitis. The ostiomeatal complexes are patent, yet they are constitutionally narrowed, with bilateral Elaine c ells. Reviewed by: Ezra Gotti MD on 05/20/2022 10:52 AM RAISA Approved by: Ezra Gotti MD on 05/20/2022 10:52 AM RAISA Station ID: [id number]
== END 2022-05-20 08:15 | disposition home or self-care (01) ==
LOC: DI 08:14
PROVIDERS: ATTEND Internal Medicine
DX: J34.89 Other specified disorders of nose and nasal sinuses (principal); J32.9 Chronic sinusitis, unspecified; J32.0 Chronic maxillary sinusitis

== ENCOUNTER 2023-05-23 15:06 | Emergency (ER) | payer MEDICARE, BC ==
[2023-05-23 18:08] LABS: BASOPHILS % (AUTO) 0.6 %; EOSINOPHILS # (AUTO) 0.5 10^3/uL (0.0-0.7); EOSINOPHILS % (AUTO) 8.4 %; HCT - HEMATOCRIT 41.9 % (42.0-52.0); HGB - HEMOGLOBIN 13.6 g/dL (14.0-18.0); LYMPHOCYTES # (AUTO) 1.3 10^3/uL (1.5-3.5); LYMPHOCYTES % (AUTO) 19.4 %; MEAN CORPUSCULAR HEMOGLOBIN 28.6 pg (27.0-31.0); MEAN CORPUSCULAR HGB CONC 32.5 g/dL (32.0-36.0); MEAN PLATELET VOLUME 10.3 fL (7.4-11.4); MONOCYTES # (AUTO) 0.5 10^3/uL (0.0-1.0); MONOCYTES % (AUTO) 7.5 %; NEUTROPHILS # (AUTO) 4.1 10^3/uL (1.5-6.6); NEUTROPHILS % (AUTO) 63.5 %; PLT - PLATELET COUNT 111 10^3/uL (130-450); RED BLOOD COUNT 4.76 10^6/uL (4.70-6.10); RED CELL DISTRIBUTION WIDTH 13.3 % (12.0-15.0); WHITE BLOOD COUNT 6.4 x10^3/uL (4.8-10.8)
[2023-05-23 18:20] LABS: ALBUMIN 4.5 g/dL (3.2-5.5); BILIRUBIN,TOTAL 0.5 mg/dL (0.2-1.0); CALCIUM 9.9 mg/dL (8.5-10.3); CREATININE 1.8 mg/dL (0.6-1.3); TOTAL PROTEIN 6.8 g/dL (6.4-8.9)
--- NOTE | 2023-05-23 18:27 | ED Physician Documentation ---
PD HPI DYSPNEA - Stated complaint Stated Complaint: UPPER BACK PX - Chief complaint Chief Complaint: Back Pain - Additional information Additional information: 73-year-old male presents emergency department for upper back/chest pain. Patient was sent here from urgent care for concerns of possible aneurysm versus dissection. Patient has complex past medical history including paroxysmal atrial fibrillation not anticoagulated, liver transplant due to hep C, hypertension. Patient reports since about mid March he has been having upper back pain that he says is very deep in his back and it hurts to take a deep breath and yesterday he started noticing more worsening pain with swallowing water. He said that his father started having multiple aortic aneurysms at this age which is what he is mostly concerned about. PD PAST MEDICAL HISTORY - Past Medical History Past Medical History: Yes Cardiovascular: Hypertension Respiratory: None Endocrine/Autoimmune: None GI: None : Benign prostate hypertrophy HEENT: None Psych: None Musculoskeletal: None Derm: Other - Past Surgical History Past Surgical History: Yes - Present Medications Home Medications: Ambulatory Orders Medication Instructions Recorded Confirmed Calcium Carbonate [Caltrate 600] 600 mg ORAL DAILY 03/29/14 05/23/23 Colchicine [Colcrys] 0.6 mg ORAL PRN PRN 03/29/14 05/23/23 Irbesartan 75 mg ORAL DAILY 03/29/14 05/23/23 Mycophenolate Sodium [Mycophenolic 360 mg ORAL BID 03/29/14 05/23/23 Acid] Tacrolimus [Prograf] 1.5 mg ORAL BID 03/29/14 05/23/23 allopurinoL [Allopurinol] 200 mg ORAL DAILY 03/29/14 05/23/23 carvediloL [Carvedilol] 75 mg ORAL DAILY 03/29/14 05/23/23 - Allergies Allergies/Adverse Reactions: Allergies Allergy/AdvReac Type Severity Reaction Status Date / Time levofloxacin [From Levaquin] Allergy Anaphylaxis Verified 05/23/23 18:22 - Social History Does the pt smoke?: No Smoking Status: Never smoker Does the pt drink ETOH?: No Does the pt have substance abuse?: No - Immunizations Immunizations are current?: Yes - POLST Patient has POLST: No PD ED PE NORMAL - Vitals Vital signs reviewed: Yes - General General: Alert and oriented X 3, No acute distress, Well developed/nourished - HEENT HEENT: Atraumatic, PERRL - Neck Neck: Supple, no meningeal sign, No JVD, No bruit - Cardiac Cardiac: RRR - Respiratory Respiratory: No respiratory distress - Abdomen Abdomen: Normal bowel sounds - Back Back: No CVA TTP, No spinal TTP, Other - Derm Derm: Normal color, Warm and dry, No rash - Neuro Neuro: Alert and oriented X 3 - Psych Psych: Normal mood - Free text exam Free text exam: Neck and back are without deformity, external skin changes, or signs of trauma. Curvature of the cervical, thoracic, and lumbar spine are within normal limits. Bony features of the shoulders and hips are of equal height bilaterally. Posture is upright, gait is smooth, steady, and within normal limits. No tenderness noted on palpation of the spinous processes. Spinous processes are midline. Cervical, thoracic, and lumbar paraspinal muscles are not tender and are without spasm. No discomfort is noted with flexion, extension, and [id number] rotation of the cervical spine, full range of motion is noted. Full range of motion including flexion, extension, and [id number] rotation of the thoracic and lumbar spine are noted and without discomfort. Straight leg raise test is negative bilaterally. Sensation to the upper and lower extremities is normal bilaterally. No clonus is noted. Gas Examiner strength is normal bilaterally. Dorsi/plantar flexion is normal bilaterally. Results - Vitals Vitals: Vital Signs - 24 hr 05/23/23 05/23/23 05/23/23 15:09 19:32 20:31 Temperature 36.8 C Heart Rate 80 67 65 Respiratory 16 16 14 Rate Blood Pressure 149/86 H O2 Saturation 99 98 98 Oxygen O2 Source Room air - Labs Labs: Laboratory Tests 05/23/23 05/23/23 05/23/23 17:59 17:59 17:59 WBC 6.4 RBC 4.76 Hgb 13.6 L Hct 41.9 L MCV 88.0 MCH 28.6 MCHC 32.5 RDW 13.3 Plt Count 111 L MPV 10.3 Neut # (Auto) 4.1 Lymph # (Auto) 1.3 L [place] # (Auto) 0.5 Eos # (Auto) 0.5 Baso # (Auto) 0.0 Absolute Nucleated RBC 0.00 Nucleated RBC % 0.0 D-Dimer < 200.0 L Sodium 137 Potassium 4.0 Chloride 103 Carbon Dioxide 27 Anion Gap 7.0 BUN 33 H Creatinine 1.8 H Estimated GFR (MDRD) 37 L Glucose 148 H Calcium 9.9 Total Bilirubin 0.5 AST 20 ALT 21 Alkaline Phosphatase 66 B-Natriuretic Peptide Total Protein 6.8 Albumin 4.5 Globulin 2.3 Albumin/Globulin Ratio 2.0 Lipase 39 05/23/23 17:59 WBC RBC Hgb Hct MCV MCH MCHC RDW Plt Count MPV Neut # (Auto) Lymph # (Auto) [place] # (Auto) Eos # (Auto) Baso # (Auto) Absolute Nucleated RBC Nucleated RBC % D-Dimer Sodium Potassium Chloride Carbon Dioxide Anion Gap BUN Creatinine Estimated GFR (MDRD) Glucose Calcium Total Bilirubin AST ALT Alkaline Phosphatase B-Natriuretic Peptide 15 Total Protein Albumin Globulin Albumin/Globulin Ratio Lipase - Rads (name of study) Angio chest with and without Relevant Findings:: Final report received, EMP independent interpretation of test, Other (Aneurysm no acute pulmonary embolus or other acute abnormalities or findings.) PD Medical Decision Making - ED course ED course: 73-year-old male presents emergency department for concerns of possible aneurysm versus dissection. Patient upper back pain actually started while he was working on his car about a month and a half ago but he was worried about a possible aneurysm because his father has had multiple aneurysms at similar age. CT angio was complete which did not reveal any sort of aneurysm or other acute abnormalities or findings. It showed possible diffuse scattered groundglass opacities although patient has no shortness of breath no chest pain. Patient was told to follow-up with primary care provider to keep an eye on the symptoms and he was given strict ER return precautions. Patient was offered Tylenol and Profen here in the emergency department but he said that given his chronic kidney disease and his liver transplant he has to avoid [id number] pain medications he said that the pain is very minimal and he feels like he will be able to handle it at home without any difficulty. Patient says that he will plan to follow-up with primary care provider for further evaluation. Departure - Departure Disposition: 01 Home, Self Care Clinical Impression: Upper back pain Instructions: ED Neck Back Pain General Comments: Thank you for trusting us with your care, we have evaluated you for upper back pain. Your main concern was possible aneurysm versus dissection and I am not seeing this on the CT scan. Please see below for the CT radiology report. The CT does show that there is possible pneumonitis although I do not believe that the symptoms you are experiencing are related to this at all. Please follow-up with your primary care provider for further evaluation about today's ER visit and please do not hesitate to come back to the emergency department if it is getting any worse or if you start develop any worsening chest pain shortness of breath or any other concerning emergent symptoms. COMPARISON: Chest radiograph dated 09/22/2017 FINDINGS: Image quality: Diagnostic. Large vessels: No filling defects within the opacified pulmonary arteries, accounting for motion and contrast timing. No evidence of acute aortic syndrome or aortic aneurysm. Lungs and pleura: No consolidation. Scattered faint groundglass opacities in the bilateral hemithoraces. No septal thickening or nodularity. No pleural effusions. No pneumothorax. No suspicious pulmonary nodules which require follow up. Coarse calcified pulmonary granuloma in the left lower lobe. Mediastinum: Heart size is normal. No pericardial effusion. No large vessel abnormality. No mediastinal adenopathy by size criteria. Chest wall and lower neck: Thyroid is unremarkable. No axillary or supraclavicular adenopathy by size. Bones: No aggressive osseous abnormality. Upper Abdomen: Status post cholecystectomy. Incompletely characterized bilateral renal hypodensities likely representing cysts.. IMPRESSION: No acute pulmonary embolus. Diffuse, scattered groundglass opacities likely representing an infectious or inflammatory process. No focal consolidation seen. Other consideration includes hypersensitivity pneumonitis. Discharge Date/Time: 05/23/23 21:11
[2023-05-23] MEDS ORDERED: iohexoL-300 100 ML VIAL ONE (18:51)
[2023-05-23] MEDS: iohexoL-300 100 ML VIAL IVP ONE (19:34)
[2023-05-23 19:41] VITALS: O2SAT 98
--- NOTE | 2023-05-23 20:32 | CT Report ---
PROCEDURE: Angio Chest INDICATIONS: dyspnea, upper back pain, CONTRAST: Omni 300 100ml TECHNIQUE: After the administration of intravenous contrast, 2 mm axial images were acquired from the pulmonary apices to the posterior costophrenic angles during the arterial phase. In addition, 1 mm lung kernel and 5 mm soft tissue kernel reconstructions were performed. 3-dimensional coronal oblique maximum int ensity projection (MIP) reformats, 8 mm axial MIP, and 5 mm coronal and sagittal MPR reformats were t hen performed through the thorax. For radiation dose reduction, the following was used: automated exp osure control, adjustment of mA and/or kV according to patient size. COMPARISON: Chest radiograph dated 09/22/2017 FINDINGS: Image quality: Diagnostic. Large vessels: No filling defects within the opacified pulmonary arteries, accounting for motion and contrast timing. No evidence of acute aortic syndrome or aortic aneurysm. Lungs and pleura: No consolidation. Scattered faint groundglass opacities in the bilateral hemithorac es. No septal thickening or nodularity. No pleural effusions. No pneumothorax. No suspicious pulmona ry nodules which require follow up. Coarse calcified pulmonary granuloma in the left lower lobe. Mediastinum: Heart size is normal. No pericardial effusion. No large vessel abnormality. No mediastin al adenopathy by size criteria. Chest wall and lower neck: Thyroid is unremarkable. No axillary or supraclavicular adenopathy by size . Bones: No aggressive osseous abnormality. Upper Abdomen: Status post cholecystectomy. Incompletely characterized bilateral renal hypodensities likely representing cysts.. IMPRESSION: No acute pulmonary embolus. Diffuse, scattered groundglass opacities likely representing an infectious or inflammatory process. N o focal consolidation seen. Other consideration includes hypersensitivity pneumonitis. Reviewed by: Butch Ferro MD on 05/23/2023 8:31 PM PDT Approved by: Butch Ferro MD on 05/23/2023 8:31 PM PDT Station ID: [id number]
[2023-05-23 20:37] VITALS: BP 149/86
== END 2023-05-23 21:11 | disposition home or self-care (01) ==
LOC: ED 15:06
DX: M54.6 Pain in thoracic spine (principal); I10 Essential (primary) hypertension; I48.0 Paroxysmal atrial fibrillation; Z79.899 Other long term (current) drug therapy
CPT/HCPCS: 36415; 71275; 80053; 83690; 83880; 85025; 85379; 93005; 99283; 99284; Q9967

== ENCOUNTER 2023-06-23 13:51 | Observation (INO) | payer MEDICARE, BC ==
[2023-06-23 14:11] LABS: BASOPHILS % (AUTO) 0.2 %; EOSINOPHILS # (AUTO) 0.1 10^3/uL (0.0-0.7); EOSINOPHILS % (AUTO) 1.1 %; HCT - HEMATOCRIT 44.8 % (42.0-52.0); LYMPHOCYTES # (AUTO) 0.7 10^3/uL (1.5-3.5); LYMPHOCYTES % (AUTO) 5.6 %; MEAN CORPUSCULAR HEMOGLOBIN 27.9 pg (27.0-31.0); MEAN CORPUSCULAR HGB CONC 31.3 g/dL (32.0-36.0); MEAN CORPUSCULAR VOLUME 89.4 fL (80.0-94.0); MEAN PLATELET VOLUME 9.9 fL (7.4-11.4); MONOCYTES # (AUTO) 0.8 10^3/uL (0.0-1.0); MONOCYTES % (AUTO) 6.4 %; NEUTROPHILS # (AUTO) 10.6 10^3/uL (1.5-6.6); NEUTROPHILS % (AUTO) 86.3 %; PLT - PLATELET COUNT 85 10^3/uL (130-450); RED BLOOD COUNT 5.01 10^6/uL (4.70-6.10); RED CELL DISTRIBUTION WIDTH 13.2 % (12.0-15.0); WHITE BLOOD COUNT 12.2 x10^3/uL (4.8-10.8)
[2023-06-23 14:24] LABS: ALBUMIN 4.6 g/dL (3.2-5.5); ALBUMIN/GLOBULIN RATIO 1.8 (1.0-2.2); BILIRUBIN,TOTAL 1.6 mg/dL (0.2-1.0); CALCIUM 9.6 mg/dL (8.5-10.3); POTASSIUM 3.9 mmol/L (3.5-4.5); TOTAL PROTEIN 7.1 g/dL (6.4-8.9)
[2023-06-23] MEDS ORDERED: iohexoL-300 100 ML VIAL ONE (14:34)
--- NOTE | 2023-06-23 14:50 | ED Physician Documentation ---
History of Present Illness - Stated complaint Stated Complaint: ABD PX - Chief complaint Chief Complaint: Abd Pain - History obtained from History obtained from: Patient - History of Present Illness Timing: Yesterday Pain level max: 6 Pain level now: 5 - Additonal information Additional information: Patient is a 73-year-old male who presents to the emergency department with abdominal pain and diarrhea since yesterday. Nonbloody. History of hepatitis C with the liver transplant approximately 24 years ago at the [facility]. He is followed by the [facility] for his liver transplant. He states he has chronic renal insufficiency as well. Not on dialysis. He states that the pain is generalized, but is worse in the right lower quadrant. He was seen at the walk-in clinic and sent here for further evaluation. Review of Systems Constitutional: denies: Fever, Chills Cardiac: denies: Chest pain / pressure Respiratory: denies: Dyspnea, Cough GI: denies: Vomiting, Hematemesis, Bloody / black stool : denies: Dysuria, Frequency, Hesitancy Skin: denies: Rash Musculoskeletal: denies: Neck pain, Back pain Neurologic: denies: Headache PD PAST MEDICAL HISTORY - Past Medical History Past Medical History: Yes Cardiovascular: Hypertension Respiratory: None Endocrine/Autoimmune: None GI: GERD : Benign prostate hypertrophy HEENT: None Psych: None Musculoskeletal: None Derm: Other - Past Surgical History Past Surgical History: Yes HEENT: Tonsil/Adenoidectomy - Present Medications Home Medications: Ambulatory Orders Medication Instructions Recorded Confirmed Calcium Carbonate [Caltrate 600] 600 mg ORAL DAILY 03/29/14 06/23/23 Colchicine [Colcrys] 0.6 mg ORAL TID PRN 03/29/14 06/23/23 Mycophenolate Sodium [Mycophenolic 360 mg ORAL BID 03/29/14 06/23/23 Acid] Tacrolimus [Prograf] 0.5 mg ORAL BID 03/29/14 06/23/23 allopurinoL [Allopurinol] 150 mg ORAL DAILY 03/29/14 06/23/23 Flecainide [Tambocar] 50 mg PO Q12H 06/23/23 06/23/23 Metoprolol Succinate [Kapspargo 12.5 mg PO DAILY 06/23/23 06/23/23 Sprinkle] Omeprazole Magnesium 20 mg PO DAILY 06/23/23 06/23/23 Sildenafil Citrate [Sildenafil] 60 mg PO DAILY PRN 06/23/23 06/23/23 Tamsulosin [Flomax] 1 cap PO DAILY 06/23/23 06/23/23 Zolpidem Tartrate [Ambien] 10 mg PO HS PRN 06/23/23 06/23/23 - Allergies Allergies/Adverse Reactions: Allergies Allergy/AdvReac Type Severity Reaction Status Date / Time levofloxacin [From Levaquin] Allergy Anaphylaxis Verified 06/23/23 13:54 - Social History Does the pt smoke?: No Smoking Status: Never smoker Does the pt drink ETOH?: No Does the pt have substance abuse?: No - Immunizations Immunizations are current?: Yes - POLST Patient has POLST: No PD ED PE NORMAL - Vitals Vital signs reviewed: Yes - General General: Alert and oriented X 3, No acute distress - HEENT HEENT: PERRL, Moist mucous membranes - Neck Neck: Supple, no meningeal sign - Cardiac Cardiac: RRR, Strong equal pulses - Respiratory Respiratory: No respiratory distress, Clear bilaterally - Abdomen Abdomen: Soft, Non distended, Other (Tender to palpation diffusely, but worse in the right lower quadrant. Mild rebound and guarding) - Back Back: No CVA TTP, No spinal TTP - Derm Derm: Warm and dry - Neuro Neuro: Alert and oriented X 3 - Psych Psych: Normal mood, Normal affect Results - Vitals Vitals: Vital Signs - 24 hr 06/23/23 06/23/23 06/23/23 13:54 15:57 17:00 Temperature 36.8 C Heart Rate 80 75 78 Heart Rate [ Brachial] Respiratory 16 14 15 Rate Blood Pressure 154/71 H 118/67 127/70 Blood Pressure [Right Brachial artery] O2 Saturation 98 97 96 If not protocol : Oxygen Flow, liters/minute 06/23/23 06/23/23 06/23/23 19:54 19:59 20:00 Temperature 37.3 C 36.8 C 37.4 C Heart Rate 86 78 84 Heart Rate [ Brachial] Respiratory 18 15 11 L Rate Blood Pressure 117/54 L 127/70 133/70 H Blood Pressure [Right Brachial artery] O2 Saturation 97 96 94 If not protocol : Oxygen Flow, liters/minute 06/23/23 06/23/23 06/23/23 20:05 20:11 20:15 Temperature 37.4 C 37.3 C 37.0 C Heart Rate 85 81 78 Heart Rate [ Brachial] Respiratory 13 16 16 Rate Blood Pressure 135/69 H 122/65 118/66 Blood Pressure [Right Brachial artery] O2 Saturation 94 93 95 If not protocol : Oxygen Flow, liters/minute 06/23/23 06/23/23 06/23/23 20:25 20:42 20:59 Temperature 37.2 C 37.2 C Heart Rate Heart Rate [ 79 75 Brachial] Respiratory 18 16 Rate Blood Pressure Blood Pressure 117/63 115/56 L [Right Brachial artery] O2 Saturation 92 94 If not protocol 2 2 2 : Oxygen Flow, liters/minute Oxygen O2 Source Nasal cannula - EKG (time done) 1727 EKG releavant findings:: EKG personally interpreted by author of this note. Relevant findings are: Rate: Rate (enter#) (80) Rhythm: NSR Intervals: LBBB - Labs Labs: Laboratory Tests 06/23/23 06/23/23 06/23/23 14:04 14:05 14:05 WBC 12.2 H RBC 5.01 Hgb 14.0 Hct 44.8 MCV 89.4 MCH 27.9 MCHC 31.3 L RDW 13.2 Plt Count 85 L MPV 9.9 Neut # (Auto) 10.6 H Lymph # (Auto) 0.7 L [place] # (Auto) 0.8 Eos # (Auto) 0.1 Baso # (Auto) 0.0 Absolute Nucleated RBC 0.00 Nucleated RBC % 0.0 PT INR APTT Sodium 135 Potassium 3.9 Chloride 99 L Carbon Dioxide 29 Anion Gap 7.0 BUN 35 H Creatinine 2.0 H Estimated GFR (MDRD) 33 L Glucose 121 H Calcium 9.6 Total Bilirubin 1.6 H AST 15 ALT 18 Alkaline Phosphatase 67 Total Protein 7.1 Albumin 4.6 Globulin 2.5 Albumin/Globulin Ratio 1.8 Lipase 17 Urine Color DARK YELLOW Urine Clarity CLEAR Urine pH 5.5 Ur Specific [place] 1.020 Urine Protein TRACE Urine Glucose (UA) NEGATIVE Urine Ketones NEGATIVE Urine Occult Blood NEGATIVE Urine Nitrite NEGATIVE Urine Bilirubin NEGATIVE Urine Urobilinogen 0.2 (NORMAL) Ur Leukocyte Esterase NEGATIVE Ur Microscopic Review NOT INDICATED Urine Culture Comments NOT INDICATED 06/23/23 17:10 WBC RBC Hgb Hct MCV MCH MCHC RDW Plt Count MPV Neut # (Auto) Lymph # (Auto) [place] # (Auto) Eos # (Auto) Baso # (Auto) Absolute Nucleated RBC Nucleated RBC % PT 12.7 H INR 1.2 APTT 26.7 Sodium Potassium Chloride Carbon Dioxide Anion Gap BUN Creatinine Estimated GFR (MDRD) Glucose Calcium Total Bilirubin AST ALT Alkaline Phosphatase Total Protein Albumin Globulin Albumin/Globulin Ratio Lipase Urine Color Urine Clarity Urine pH Ur Specific [place] Urine Protein Urine Glucose (UA) Urine Ketones Urine Occult Blood Urine Nitrite Urine Bilirubin Urine Urobilinogen Ur Leukocyte Esterase Ur Microscopic Review Urine Culture Comments - Rads (name of study) CT ABD/PELVIS Relevant Findings:: Final report received, See rad report PD Medical Decision Making - ED course Complexity details: reviewed results, re-evaluated patient, considered differential, d/w patient ED course: 73-year-old male with acute appendicitis. Given IV Zosyn. Given IV fluids. Kept NPO. Discussed with Dr. Gamez. General surgery who came and evaluated the patient. Will take the patient to the OR. Departure - Departure Disposition: ED Transfer to [facility] Clinical Impression: Appendicitis Qualifiers: Appendicitis type: acute appendicitis Acute appendicitis type: unspecified acute appendicitis type Qualified Code(s): K35.80 - Unspecified acute appendicitis Condition: Stable Discharge Date/Time: 06/23/23 18:31
[2023-06-23] MEDS: SODIUM CHLORIDE 0.9% 1,000 ML IV STA ×2 (14:53)
[2023-06-23 15:23] LABS: BILIRUBIN,URINE NEGATIVE (NEGATIVE); GLUCOSE, URINE (UA) NEGATIVE (NEGATIVE); KETONES,URINE (UA) NEGATIVE (NEGATIVE); LEUKOCYTE ESTERASE, URINE NEGATIVE (NEGATIVE); NITRITE,URINE NEGATIVE (NEGATIVE); OCCULT BLOOD,URINE NEGATIVE (NEGATIVE); PH,URINE 5.5 PH (5.0-7.5); PROTEIN,URINE TRACE mg/dL (NEGATIVE); UROBILINOGEN,URINE 0.2 (NORMAL) E.U./dL (NORMAL)
[2023-06-23 15:24] LABS: CLARITY,URINE CLEAR (CLEAR)
[2023-06-23] MEDS: iohexoL-300 100 ML VIAL IVP ONE (15:24)
--- NOTE | 2023-06-23 15:33 | CT Report ---
PROCEDURE: Abdomen/Pelvis W INDICATIONS: RLQ abd pain, fever CONTRAST: 100ml [id number] TECHNIQUE: After the administration of intravenous contrast, a CT scan of the abdomen and pelvis was performed. Images were recorded and evaluated at appropriate window settings. Reformats: coronal and sagittal. F or radiation dose reduction, the following was used: automated exposure control, adjustment of mA and /or kV according to patient size. COMPARISON: None. FINDINGS: Image quality: Diagnostic. Lower chest: Calcified granuloma within the left lung base. Liver: No solid mass. Gallbladder and biliary tree: Gallbladder surgically absent. No biliary ductal dilatation. Spleen: No splenomegaly. Pancreas: No pancreatic ductal dilation. Adrenals: No adrenal nodule. Kidneys and ureters: No hydronephrosis. No renal cystic lesion which requires follow up. No solid mas s. Stomach, bowel and peritoneum: No bowel distension. No pathologic free fluid. The appendix is distend ed measuring 11 mm diameter, with moderate surrounding fat stranding. Lymph nodes: No central or retroperitoneal adenopathy. Vessels: No infrarenal aortic aneurysm. PELVIS Reproductive organs: Unremarkable. Bladder: No abnormal wall thickening, accounting for underdistention. Pelvic lymph nodes: No pelvic adenopathy by size criteria. Bones: No aggressive osseous abnormality. Other: No significant ventral or inguinal hernia. IMPRESSION: 1. Acute appendicitis. Reviewed by: Lorena Henderson MD on 06/23/2023 3:32 PM PDT Approved by: Lorena Henderson MD on 06/23/2023 3:32 PM PDT Station ID: [id number]
[2023-06-23] MEDS: PIPERACILLIN/TAZOBACTAM 3.375 GM in SODIUM CHLORIDE 0.9% MINIBAG 100 ML IV STA (16:07)
[2023-06-23] MEDS ORDERED: LIDOCAINE 1%-EPI 1:100000 20 ML MDV ONE (17:11)
[2023-06-23] MEDS ORDERED: BUPIVACAINE 0.25% PF 30 ML VIAL ONE (17:11)
[2023-06-23 17:26] LABS: PARTIAL THROMBOPLASTIN TIME 26.7 secs (24.9-33.3)
[2023-06-23 17:30] LABS: INR 1.2 (0.8-1.2); PT - PROTHROMBIN TIME 12.7 secs (9.9-12.6)
--- NOTE | 2023-06-23 17:33 | ANESTHESIA ---
Pre-Anesthesia VS, & Labs - Diagnosis APPENDICITIS - Procedure LAPARASCOPIC APPENDECTOMY Vital Signs: Temp Pulse Resp BP Pulse Ox O2 Flow Rate 36.8 C 75 14 118/67 97 06/23/23 13:54 06/23/23 15:57 06/23/23 15:57 06/23/23 15:57 06/23/23 15:57 Height: 6 ft 2 in Weight (kg): 90 kg Body Mass Index: 25.4 BMI Classification: Overweight - NPO >8 hours - Lab Results Current Lab Results: Laboratory Tests 06/23/23 14:05: Sodium 135, Potassium 3.9, Chloride 99 L, Carbon Dioxide 29, Anion Gap 7.0, BUN 35 H, Creatinine 2.0 H, Estimated GFR (MDRD) 33 L, Glucose 121 H, Calcium 9.6, Total Bilirubin 1.6 H, AST 15, ALT 18, Alkaline Phosphatase 67, Total Protein 7.1, Albumin 4.6, Globulin 2.5, Albumin/Globulin Ratio 1.8, Lipase 17 06/23/23 14:05: WBC 12.2 H, RBC 5.01, Hgb 14.0, Hct 44.8, MCV 89.4, MCH 27.9, MCHC 31.3 L, RDW 13.2, Plt Count 85 L, MPV 9.9, Neut # (Auto) 10.6 H, Lymph # (Auto) 0.7 L, [place] # (Auto) 0.8, Eos # (Auto) 0.1, Baso # (Auto) 0.0, Absolute Nucleated RBC 0.00, Nucleated RBC % 0.0 Fish Bones: 06/23/23 14:05 06/23/23 14:05 Home Medications and Allergies Home Medications: Ambulatory Orders Flecainide [Tambocar] 50 mg PO Q12H 06/23/23 Metoprolol Succinate [Kapspargo Sprinkle] 12.5 mg PO DAILY 06/23/23 Omeprazole Magnesium 20 mg PO DAILY 06/23/23 Sildenafil Citrate [Sildenafil] 60 mg PO DAILY PRN 06/23/23 Tamsulosin [Flomax] 1 cap PO DAILY 06/23/23 Zolpidem Tartrate [Ambien] 10 mg PO HS PRN 06/23/23 Active Medications Sodium Chloride (Normal Saline 0.9%) 1,000 mls @ 150 mls/hr IV .Q6H40M STA Stop: 06/23/23 21:08 Last Admin: 06/23/23 14:53 Dose: 150 mls/hr Calcium Carbonate [Caltrate 600] 600 mg ORAL DAILY 03/29/14 Colchicine [Colcrys] 0.6 mg ORAL TID PRN 03/29/14 Mycophenolate Sodium [Mycophenolic Acid] 360 mg ORAL BID 03/29/14 Tacrolimus [Prograf] 0.5 mg ORAL BID 03/29/14 allopurinoL [Allopurinol] 150 mg ORAL DAILY 03/29/14 Flecainide [Tambocar] 50 mg PO Q12H 06/23/23 Metoprolol Succinate [Kapspargo Sprinkle] 12.5 mg PO DAILY 06/23/23 Omeprazole Magnesium 20 mg PO DAILY 06/23/23 Sildenafil Citrate [Sildenafil] 60 mg PO DAILY PRN 06/23/23 Tamsulosin [Flomax] 1 cap PO DAILY 06/23/23 Zolpidem Tartrate [Ambien] 10 mg PO HS PRN 06/23/23 Allergies/Adverse Reactions: Allergies Allergy/AdvReac Type Severity Reaction Status Date / Time levofloxacin [From Levaquin] Allergy Anaphylaxis Verified 06/23/23 13:54 Anes History & Medical History - Anesthetic History Anesthesia Complications: reports: No previous complications Family history of Anesthesia Complications: Denies - Medical History Cardiovascular: reports: Hypertension, Atrial fibrillation (NOT IN AFIB; TAKES METOPROLOL AND FLECAINIDE; HE HAD THEM TODAY, NOT ANTICOAGULATION) Pulmonary: reports: None, Other (HE HAD COVID IN MARCH; SATS 98 ON RA) Gastrointestinal: reports: GERD Urinary: reports: Benign prostate hypertrophy, Renal insuffiency (CR 2.0) Musculoskeletal: reports: Gout Endocrine/Autoimmune: reports: None Skin: reports: Other Smoking Status: Never smoker Psychosocial: reports: No issues indicated - Surgical History Eyes Ears Nose Throat (EENT): reports: Tonsil/Adenoidectomy Results - EKG Results EKG Comparison: Reviewed EKG Exam General: Alert, Oriented x3 Dental: WNL Mouth Openin Fingerbreadth Neck Mobility: Normal Mallampati classification: II Thyromental Distance: 4-6 cm Respiratory: Lungs clear Cardiovascular: Regular rate Plan Anesthesia Type: General Consent for Procedure(s) Verified and Reviewed: Yes Code Status: Attempt Resuscitation ASA classification: 3-Severe systemic disease Is this case an emergency?: Yes
[2023-06-23] MEDS ORDERED: ePHEDrine 50 MG/ML VIAL IVP PRN (17:35)
[2023-06-23] MEDS ORDERED: ONDANSETRON 4 MG/2 ML VIAL IVP PRN ×2 (17:35→20:09)
[2023-06-23] MEDS ORDERED: HYDROmorphone 0.5 MG/0.5 ML SYRINGE IVP PRN (17:35)
[2023-06-23] MEDS ORDERED: fentaNYL 100 MCG/2 ML VIAL IVP PRN (17:35)
[2023-06-23] MEDS ORDERED: ATROPINE ABBOJECT 1 MG/10 ML SYRINGE IVP PRN (17:35)
[2023-06-23] MEDS ORDERED: MORPHINE 2 MG/ML CARPUJECT IVP PRN ×2 (17:35→20:09)
[2023-06-23] MEDS ORDERED: NALOXONE 0.4 MG/ML VIAL IVP PRN (17:35)
[2023-06-23] MEDS ORDERED: ROCURONIUM 50 MG/5 ML VIAL ONE (17:47)
[2023-06-23] MEDS ORDERED: PROPOFOL 200 MG/20 ML VIAL IVP ONE (17:47)
[2023-06-23] MEDS ORDERED: LIDOCAINE-PF 2% 10 ML AMP SUBQ ONE (17:47)
[2023-06-23] MEDS ORDERED: fentaNYL 100 MCG/2 ML VIAL ONE (17:48)
[2023-06-23] MEDS ORDERED: LACTATED RINGERS 1,000 ML IV SCH (18:00)
[2023-06-23] MEDS ORDERED: ePHEDrine 50 MG/ML VIAL IVP ONE (18:37)
[2023-06-23] MEDS ORDERED: PHENYLEPHRINE HCL 0.5 MG/5 ML AMPULE ONE (18:37)
[2023-06-23] MEDS: BUPIVACAINE 0.25% PF 30 ML VIAL SUBQ ONE ×2 (18:41)
[2023-06-23] MEDS: LIDOCAINE 1%-EPI 1:100000 20 ML MDV SUBQ ONE ×2 (18:41)
[2023-06-23] MEDS ORDERED: ACETAMINOPHEN 1,000 MG/100 ML 1,000 MG/100 ML BAG IV ONE (19:04)
[2023-06-23] MEDS ORDERED: SUGAMMADEX 200 MG/2 ML VIAL IVP ONE (19:29)
[2023-06-23] MEDS: LACTATED RINGERS 200 ML IV ONE ×2 (19:54→20:17)
--- NOTE | 2023-06-23 19:59 | SURGERY HX AND PHYSICAL(T) ---
Surgical History & Physical - PMH/PSH/Social Hx Does the pt have a hx of MRSA?: No Eyes, Ears, Nose, Throat: None Cardiovascular: Hypertension Respiratory: None Skin: Other Endocrine/Autoimmune: None Gastrointestinal: GERD Urinary: Benign prostate hypertrophy Musculoskeletal: None Psychiatric: None Eyes Ears Nose Throat (EENT): Tonsil/Adenoidectomy Smoking Status: Never smoker Does the pt drink ETOH?: No Does the pt have substance abuse?: No - Home Meds and Allergies Home Medications: Calcium Carbonate [Caltrate 600] 600 mg ORAL DAILY 03/29/14 Colchicine [Colcrys] 0.6 mg ORAL TID PRN 03/29/14 Mycophenolate Sodium [Mycophenolic Acid] 360 mg ORAL BID 03/29/14 Tacrolimus [Prograf] 0.5 mg ORAL BID 03/29/14 allopurinoL [Allopurinol] 150 mg ORAL DAILY 03/29/14 Flecainide [Tambocar] 50 mg PO Q12H 06/23/23 Metoprolol Succinate [Kapspargo Sprinkle] 12.5 mg PO DAILY 06/23/23 Omeprazole Magnesium 20 mg PO DAILY 06/23/23 Sildenafil Citrate [Sildenafil] 60 mg PO DAILY PRN 06/23/23 Tamsulosin [Flomax] 1 cap PO DAILY 06/23/23 Zolpidem Tartrate [Ambien] 10 mg PO HS PRN 06/23/23 Allergies/Adverse Reactions: Allergies Allergy/AdvReac Type Severity Reaction Status Date / Time levofloxacin [From Levaquin] Allergy Anaphylaxis Verified 06/23/23 13:54 - Vital Signs Heart Rate: 78 Blood Pressure: 127/70 Temperature: 36.8 C Respiratory Rate: 15 O2 Saturation: 96 Weight (kg): 90 kg Height: 1.88 m - Patient Review Patient Review: Problems were reviewed with the patient during this visit. Medications were reviewed with the patient during this visit. Allergies were reviewed this patient during this visit. Pertinent Tests Reviewed: All pertitent test for this patient were reviewed. - Assessment & Plan Assessment and Plan: [address] [address] History & Physical Pre-Op Patient Name: JAY GRIMES Date of : 1950 Patient Status: Clinical Attending Provider: Sal[place] Foley Date: 06/23/23 17:10 Initialization Date: 06/23/23 17:10 HPI - Admitted From Admitted from: ED - History Obtained From History obtained from: Patient Exam limitations: No limitations - History of Present Illness Pain/Problem Location Description: ABdominal pain, diarrhea HPI Comment/Other: 73yoM with 48hr generalized abdominal pain and non-bloody diarrhea that has migrated/localized to the RLQ. Associated with anorexia (last tried to eat >8hrs ago) but no nausea or emesis. No history of similar pain or symptoms. Endorses subjective fever yesterday. Notable history of liver transplant 24yrs ago for hep C on mycophenolate and tacrolimus with associated chronic thrombocytopenia. PMH/PSH - Past Medical History Cardiovascular: positive: Hypertension, Atrial fibrillation Respiratory: positive: None Endocrine/Autoimmune: positive: None GI: positive: GERD, Cirrhosis (H/o hep C s/p liver transplant yr 1999) : positive: Benign prostate hypertrophy HEENT: positive: None Psych: positive: None Musculoskeletal: positive: None Derm: positive: Other Other Past Medical History: Gout, chronic thrombocytopenia - Past Surgical History General: positive: Liver surgery (transplant, 1999)) HEENT: positive: Tonsil/Adenoidectomy (childhood) Social & Family Hx - Living Situation Living Arrangement: At home Living Situation: With spouse/s.o. - Social History Does the pt smoke?: No Smoking Status: Never smoker Does the pt drink ETOH?: No Does the pt have substance abuse?: No - POLST Patient has POLST: No Meds/Allgy - Home Medications Home Medications: Ambulatory Orders Medication Instructions Recorded Confirmed Calcium Carbonate [Caltrate 600] 600 mg ORAL DAILY 03/29/14 06/23/23 Colchicine [Colcrys] 0.6 mg ORAL TID PRN 03/29/14 06/23/23 Mycophenolate Sodium [Mycophenolic 360 mg ORAL BID 03/29/14 06/23/23 Acid] Tacrolimus [Prograf] 0.5 mg ORAL BID 03/29/14 06/23/23 allopurinoL [Allopurinol] 150 mg ORAL DAILY 03/29/14 06/23/23 Flecainide [Tambocar] 50 mg PO Q12H 06/23/23 06/23/23 Metoprolol Succinate [Kapspargo 12.5 mg PO DAILY 06/23/23 06/23/23 Sprinkle] Omeprazole Magnesium 20 mg PO DAILY 06/23/23 06/23/23 Sildenafil Citrate [Sildenafil] 60 mg PO DAILY PRN 06/23/23 06/23/23 Tamsulosin [Flomax] 1 cap PO DAILY 06/23/23 06/23/23 Zolpidem Tartrate [Ambien] 10 mg PO HS PRN 06/23/23 06/23/23 - Allergies Allergies/Adverse Reactions: Allergies Allergy/AdvReac Type Severity Reaction Status Date / Time levofloxacin [From Levaquin] Allergy Anaphylaxis Verified 06/23/23 13:54 Review of Systems - Constitutional Constitutional: reports: Fever, Poor appetite - Cardiovascular Cariovascular: denies: Palpitations, Chest pain - Gastrointestinal Gastrointestinal: reports: Abdominal pain, Abdominal distention (chronic, currently at baseline), Diarrhea. denies: Rectal bleeding, Nausea, Vomiting - Genitourinary Genitourinary: denies: Dysuria, Frequency Exam - Vital Signs Reviewed Vital Signs: Yes - Physical Exam General Appearance: positive: No acute distress Eyes Bilateral: positive: Normal inspection, PERRL ENT: positive: ENT inspection nml, Pharynx nml, No signs of dehydration Neck: positive: Nml inspection, Thyroid nml, No JVD, Trachea midline Respiratory: positive: Chest non-tender, No respiratory distress, Breath sounds nml Cardiovascular: positive: No murmur, No gallop. negative: Tachycardia Peripheral Pulses: positive: 2+ Abdomen: positive: Tenderness (mild generalized ttp with focally worse in RLQ, negative rosvings sign). negative: No distention (patient indicates distension is baseline), Guarding, Rebound Back: positive: Nml inspection Skin: positive: Color nml, No rash, Warm, Dry Extremities: positive: Non-tender, Full ROM, Nml appearance Neurologic/Psychiatric: positive: Oriented x3, Mood/affect nml Results - Lab Results Lab results reviewed: Yes Other Lab Results: WBC 12.2, Hgb 14, PLTs 85, Cr 2.0 - Diagnostic Imaging Results Diagnostic Imaging Results: positive: Final report reviewed, Read independently Diagnostic Imaging Results Comments: Acute appendicitis, no evidence of perforation, 11mm diameter - EKG Results EKG Findings: EKG pending Sepsis Event Note (H) - Evaluation Current Stage of Sepsis: Ruled out Impression/Plan - Problem List Problem List: 1. Acute appendicitis 2. Thrombocytopenia 3. Chronic Kidney Disease 4. Status-post liver transplant (yr 1999) with chronic immunosuppression 73yoM found to have acute appendicitis after 2 days of migratory abdominal pain and diarrhea. HD normal with leukocytosis to 12.[address] consistent with non-perforated appendicitis. Patient is a liver transplant patient who follows with [place] post-liver transplant clinic, maintained on mycophenolate and tacrolimus. Patient has comorbidities associated with the side effects of his immunosuppresion, to include chronic thrombocytopenia (baseline 100-150, today with PLTs slightly lower at 85 in setting of infection) and chronic kidney disease (today Cr is 2.0 which is within his baseline range of 1.7-2.0). Coags are pending, EKG is pending. Discussed nature of acute appendicitis and management options to include laparoscopic appendectomy vs antibiotics. Discussed risk of poor wound healing/staple line leak on immunosuppressants in addition to standard risks of surgery (pain, bleeding, infection, damage to surrounding structures, bowel resection, conversion to open, RI, PE, stroke, ); as well of risk of unresolved or recurrent appendicitis if treating with antibiotics (particularly while on immunosuppressants. I recommend surgical management and I was able to speak with the on-call transplant supervisor electrolytic tinning who agrees with recommendation to proceed with surgery. Patient and understand, all questions were answered, and he agrees to proceed with laparoscopic appendectomy. Zosyn given in ED To OR for laparoscopic appendectomy Admit to observation overnight, anticipate DC home tomorrow AM Will continue home meds post-op. Amalia Gamez DO, FACS General Surgeon (Note documented initially on correct patient but wrong encounter prior to surgery. Note copied to this correct encounter after surgery.)
--- NOTE | 2023-06-23 20:06 | OPERATIVE REPORT ---
Operative Report - General Planned Procedure: Laproscopic appendectomy Pre-Op Diagnosis: acute appendicitis Procedure Performed: laparoscopic appendectomy Post Op Diagnosis: acute perforated appendicitis - Procedure Note Primary Surgeon: Amalia Gamez DO Anesthesia Provider: Theo Hall CRNA Anesthesia Technique: General ET tube Pathology: appendix IV Fluids (mL): 700 (crystalloid) Estimated Blood Loss (mL): 10 Urine Output (mL): 0 (not recorded) Indications: 73yoM with 2 days of migratory abdominal pain and diarrhea, hemodynamically normal with focal right lower quadrant tenderness, leukocytosis to 12, and CT co nsistent with appendicitis but no evidence of perforation. Findings: Perforated appendix - purulent fluid in the right lower quadrant and pelvix, friable inflamed appendix Complications: none - Other Other Information/Narrative: The patient was brought to the operating room with universal protocol observed throughout. He was placed supine on the operating room table with the left arm tucked. A Rivera was not placed. General anesthesia with endotracheal tube was induced by the anesthesia service. A timeout was performed with all members of the team being in agreement. Local anesthetic of 1% lidocaine with epinephrine mixed with Marcaine plain was injected into the infraumbilical skin. a transverse skin incision was made sharply. Blunt dissection down to the level of the fascia was performed. the umbilical stalk was elevated and the fascia was incised sharply in a vertical orientation and the peritoneal cavity was entered bluntly with a Bridgette clamp. A 12 mm balloon trocar was placed. The abdomen was insufflated with CO2 gas to a pressure of 15 mmHg which the patient tolerated well. The laparoscope was inserted and visual inspection revealed no evidence of injury upon entry. Graspers were introduced into the abdomen. The appendix was seen to be erythematous and indurated with a small surrounding pooling of purulent fluid in the right lower quadrant. Adhesions were taken down with blunt dissection. The appendix was elevated, the mesoappendix was divided with a Ligasure, and the base of the appendix was divided with a 30 mm blue load staple line. The appendix was placed into an Endo Catch bag and extracted through the umbilical port. The staple line was inspected and noted to be intact and hemostatic. Purulent fluid was suctioned from the right lower quadrant and the pelvis. The trocars were removed under direct visualization. The umbilical fascia was closed with an 0 Vicryl [id number] suture. The umbilical wound was irrigated with clean normal saline. Hemostasis in the wound was achieved with Bovie electrocautery and all skin incisions were closed with subcuticular 4-0 Monocryl suture. A dressing of Steri-Strips gauze and Tegaderm was applied. The patient was extubated and awoken from general anesthesia. There were no complications. All sponge needle counts were correct. The patient was transferred to the PACU in stable condition. Amalia Gamez DO, FACS General Surgeon
[2023-06-23] MEDS ORDERED: oxyCODONE 5 MG TABLET PO PRN (20:09)
[2023-06-23] MEDS ORDERED: SODIUM CHLORIDE FLUSH 0.9% 10 ML SYRINGE IVP PRN (20:09)
[2023-06-23] MEDS ORDERED: METOCLOPRAMIDE 10 MG/2 ML VIAL ONE (20:12)
[2023-06-23] MEDS: METOCLOPRAMIDE 10 MG/2 ML VIAL IVP PRN (20:15)
[2023-06-23] MEDS: LACTATED RINGERS 1,000 ML IV SCH (20:52)
[2023-06-23] MEDS: PIPERACILLIN/TAZOBACTAM 3.375 GM in SODIUM CHLORIDE 0.9% MINIBAG 100 ML IV SCH (20:52)
[2023-06-23] MEDS: TACROLIMUS 0.5 MG CAPSULE PO SCH (20:53)
[2023-06-23] MEDS: FLECAINIDE 50 MG TABLET PO SCH (20:53)
[2023-06-23] MEDS: TAMSULOSIN 0.4 MG CAPSULE PO SCH (21:13)
[2023-06-24] MEDS: ACETAMINOPHEN 325 MG TABLET PO SCH (00:02)
[2023-06-24] MEDS: SODIUM CHLORIDE FLUSH 0.9% 10 ML SYRINGE IVP SCH (00:30)
[2023-06-24 05:05] VITALS: O2SAT 95
[2023-06-24] MEDS: METOPROLOL SUCCINATE 25 MG TABLET PO SCH (07:06)
[2023-06-24] MEDS: CALCIUM CARBONATE CHEW 500 MG TABLET PO SCH (07:07)
[2023-06-24] MEDS: PANTOPRAZOLE 40 MG TABLET PO SCH (07:07)
[2023-06-24 07:34] VITALS: BP 116/60
[2023-06-24] MEDS: allopurinoL 100 MG TABLET PO SCH (08:07)
--- NOTE | 2023-06-24 08:22 | Discharge Plan ---
Discharge Plan Problem Reviewed?: Yes Disposition: 01 Home, Self Care Condition: Good Diet: Regular Activity Restrictions: No lifting >15 Lb x 4 wks Shower Restrictions: No Driving Restrictions: No Weight Bearing: Full Weight Instruction Topics: Incision Care Plan of Treatment: You are prescribed 3 days or oral antibiotics for perforated appendicitis. Additional Instructions or Follow Up instructions: The General Surgery clinic ("[facility] will call you to scheduled a post-op follow up appointment in about 2 weeks. No Smoking: If you smoke, Please STOP! Call for help.
--- NOTE | 2023-06-24 08:33 | DISCHARGE SUMMARY ---
"Discharge Summary Admit Date: 06/23/23 Discharge Date: 06/24/23 Discharging Provider: Amalia Gamez DO Code Status: Attempt Resuscitation Condition at Discharge: Good Discharge Disposition: 01 Home, Self Care - DIAGNOSES Admission Diagnoses: Acute appendicitis Discharge Diagnoses with Status of Each Condition: Acute perforated appendicitis - resolved - CONSULTS | PROCEDURES Procedures: Laparoscopic appendectomy - HOSPITAL COURSE Hospital Course: The patient was admitted with acute appendicitis. He was taken to the operating room and found to have acute perforated appendicitis, and underwent an uncomplicated laparoscopic appendectomy. He was observed overnight and had minimal pain controlled with PO tylenol, remained HD normal, voiding and ambulating at baseline, tolerating a regular diet without nausea or vomiting. His diarrhea associated with the appendicitis had not resolved by discharge; discussed with patient that I would expect it to resolve within 24-48 hours, and if it does not he may seek care with PCM or ED for stool testing; return precautions for dehydration associated with diarrhea were given, however patient not exhibiting these symptoms at the time of discharge. He was maintained on IV zosyn during his inpatient observation and is discharged to home with 3 days of Augmentin for perforated appendicitis. He was maintained on all of his home meds during observation, to include his post-liver transplant immunosuppresion regimen of tacrolimus and mycophenolate sodium. - ALLERGIES Allergies/Adverse Reactions: Allergies Allergy/AdvReac Type Severity Reaction Status Date / Time levofloxacin [From Levaquin] Allergy Anaphylaxis Verified 06/23/23 13:54 - MEDICATIONS Home Medications: Ambulatory Orders Medication Instructions Recorded Confirmed Calcium Carbonate [Caltrate 600] 600 mg ORAL DAILY 03/29/14 06/23/23 Colchicine [Colcrys] 0.6 mg ORAL TID PRN 03/29/14 06/23/23 Mycophenolate Sodium [Mycophenolic 360 mg ORAL BID 03/29/14 06/23/23 Acid] Tacrolimus [Prograf] 0.5 mg ORAL BID 03/29/14 06/23/23 allopurinoL [Allopurinol] 150 mg ORAL DAILY 03/29/14 06/23/23 Flecainide [Tambocar] 50 mg PO Q12H 06/23/23 06/23/23 Metoprolol Succinate [Kapspargo 12.5 mg PO DAILY 06/23/23 06/23/23 Sprinkle] Omeprazole Magnesium 20 mg PO DAILY 06/23/23 06/23/23 Sildenafil Citrate [Sildenafil] 60 mg PO DAILY PRN 06/23/23 06/23/23 Tamsulosin [Flomax] 1 cap PO DAILY 06/23/23 06/23/23 Zolpidem Tartrate [Ambien] 10 mg PO HS PRN 06/23/23 06/23/23 - PHYSICAL EXAM AT DISCHARGE General Appearance: positive: No acute distress Eyes Bilateral: positive: Normal inspection ENT: positive: ENT inspection nml Neck: positive: Nml inspection Respiratory: positive: Chest non-tender, No respiratory distress, Breath sounds nml Cardiovascular: positive: Regular rate & rhythm Peripheral Pulses: positive: 2+ Abdomen: positive: Tenderness (minimal periincisional ttp, no RLQ ttp). negative: Guarding, Rebound Skin: positive: Color nml Extremities: positive: Non-tender, Full ROM Neurologic/Psychiatric: positive: Oriented x3 - LABS Result Diagrams: 06/23/23 14:05 06/23/23 14:05 - SEPSIS Current Stage of Sepsis: Ruled out - FOLLOW UP Follow Up: With General Surgery in 2 weeks - TIME SPENT Time Spent in Discharge (Minutes): 30"
--- NOTE | 2023-06-24 10:07 | PHARMACY PROGRESS NOTE ---
- Best Possible Medication History Admit Date and Time: 06/23/232007 Processed by: Nursing Medications reviewed in ED?: Yes As the person ultimately responsible for medication therapy, providers are able to order a medication from an existing home medication list in [facility] via the "Reconcile Routine" prior to Confirmation of that medication by application support technician. Such practice is discouraged except when the physician, in their clinical judgment, deems that a medical need exists for a medication without regard to previous use.
[2023-06-24] MEDS: MYCOPHENOLATE SODIUM 360 MG PO SCH (10:31)
--- NOTE | 2023-06-24 10:44 | ANESTHESIA POST OP EVALUATION ---
Anesthesia Post Eval - Post Anesthesia Eval Vitals: Last Vital Signs Temp 36.7 C 06/24/23 07:26 Pulse 68 06/24/23 07:26 Resp 16 06/24/23 07:26 BP 116/60 06/24/23 07:26 Pulse Ox 95 06/24/23 07:26 O2 Flow Rate 2 06/23/23 23:45 CV Function Including HR & BP: Stable Pain Control: Satisfactory Nausea & Vomiting: Negative Mental Status: Baseline Respiratory Status: Airway Patent Hydration Status: Satisfactory Anesthesia Complications: None
== END 2023-06-24 11:15 | disposition home or self-care (01) ==
LOC: ED 13:51 → SDS 18:25 → MS2 19:10 → SDS 20:08 → MS2 20:08
PROVIDERS: ADMIT Surgery; ATTEND Surgery
PROC: 0DTJ4ZZ Resection of Appendix, Percutaneous Endoscopic Approach (ICD-10-PCS; principal; 2023-06-23 17:30)
DX: K35.32 Acute appendicitis with perforation, localized peritonitis, and gangrene, without abscess (principal); I10 Essential (primary) hypertension; K21.9 Gastro-esophageal reflux disease without esophagitis; M10.9 Gout, unspecified; I44.7 Left bundle-branch block, unspecified; Z79.899 Other long term (current) drug therapy; Z94.4 Liver transplant status
CPT/HCPCS: 36415; 44970; 74177; 80053; 81003; 83690; 85025; 85610; 85730; 93005; 96365; 96366; 96375; 99284; 99285; A9270; G0378; J0131; J2372; J2765; J7120; Q9967; 81001; 87086; 87507

== ENCOUNTER 2023-10-06 10:48 | Outpatient (CLI) | payer MEDICARE, BC ==
--- NOTE | 2023-10-06 16:51 | CT Report ---
PROCEDURE: Chest WO INDICATIONS: INFILTRATE OF LUNG TECHNIQUE: A CT scan of the chest was performed. Intravenous contrast media was not administered. Images were re corded and evaluated at appropriate window settings. Reformats: axial MIP of the chest, coronal and s agittal. For radiation dose reduction, the following was used: automated exposure control, adjustment of mA and/or kV according to patient size. COMPARISON: 05/23/2023 FINDINGS: Image quality: Diagnostic. Chest wall and lower neck: No suspicious chest wall mass. Normal thyroid. No axillary or supraclavicu lar adenopathy by size. Lungs and pleura: Interval resolution of acute bilateral groundglass opacities. Persistent linear sca rring or atelectasis in the posterior left lower lung. Large calcified granuloma at the left lung bas e. 3 mm granuloma in the right middle lobe. Juxta fissural lymph nodes at the left major fissure. No pleural effusions. No pneumothorax. No suspicious pulmonary nodules which require follow up. Mediastinum: Heart size is normal. No pericardial effusion. No large vessel abnormality. No mediastin al adenopathy by size criteria. No anterior or posterior mediastinal mass. Normal esophagus without hiatal hernia Bones: No aggressive osseous abnormality. Upper Abdomen: Prior cholecystectomy and scattered pancreatic calcifications. Stable left renal cyst. IMPRESSION: Interval resolution of acute bilateral pulmonary infiltrates. Evidence of remote, healed granulomatous disease in both lungs. Prior cholecystectomy and scattered pancreatic calcifications suggesting possible minor chronic pancr eatitis. Correlate clinically. Reviewed by: Mag Cast MD on 10/06/2023 4:49 PM PDT Approved by: Mag Cast MD on 10/06/2023 4:49 PM PDT Station ID: [id number]
== END 2023-10-06 10:49 | disposition home or self-care (01) ==
LOC: DI 10:48
PROVIDERS: ATTEND Internal Medicine
DX: Z09 Encounter for follow-up examination after completed treatment for conditions other than malignant neoplasm (principal); Z87.09 Personal history of other diseases of the respiratory system; Z94.4 Liver transplant status; Z79.60 Long term (current) use of unspecified immunomodulators and immunosuppressants; Z90.49 Acquired absence of other specified parts of digestive tract; K86.89 Other specified diseases of pancreas